=== PATIENT | male | born 1960 | race African-American/Black ===

== ENCOUNTER → 2019-12-09 10:54 | Outpatient (CLI) | payer OTHER ==
[2019-12-09 12:01] LABS: T4 THYROXIN - FREE 1.09 ng/dL (0.76-1.46); THYROID STIMULATING HORMONE 0.51 uIU/mL (0.36-3.74)
== END | disposition home or self-care (01) ==
LOC: D.LAB 10:54
PROVIDERS: ATTEND Counselor Mental Health
DX: E03.9 Hypothyroidism, unspecified (principal)

== ENCOUNTER → 2020-08-20 09:13 | Outpatient (CLI) | payer OTHER | END | disposition home or self-care (01) | LOC: D.LAB 09:13 | DX: Z11.52 Encounter for screening for COVID-19 (principal) ==

== ENCOUNTER → 2020-08-24 15:22 | Outpatient (CLI) | payer OTHER | END | disposition home or self-care (01) | LOC: D.RT 15:22 | DX: R06.02 Shortness of breath (principal) ==